=== PATIENT | male | born 1940 | race Caucasian/White ===

== ENCOUNTER 2025-10-16 05:31 | Inpatient (IN) ==
[2025-10-02 14:11] LABS: Basophils # (Auto) 0.02 K/mcL (0.00-0.30); Basophils % (Auto) 0.5 % (0.0-2.0); Eosinophils # (Auto) 0.07 K/mcL (0.00-0.70); Eosinophils % (Auto) 1.8 % (0.0-7.0); Hematocrit 44.6 % (40.1-51.0); Hemoglobin 14.8 g/dL (13.7-17.5); Lymphocytes # (Auto) 1.34 K/mcL (1.50-4.80); Lymphocytes % (Auto) 34.8 % (15.5-49.0); Mean Corpuscular HGB Conc 33.2 g/dL (31.0-36.0); Monocytes # (Auto) 0.36 K/mcL (0.10-0.90); Monocytes % (Auto) 9.4 % (1.0-12.0); Neutrophils % (Auto) 53.5 % (38.0-78.0); Platelet Count 213 K/mcL (140-440); RBC 4.55 M/mcL (4.63-6.08); WBC 3.9 K/mcL (4.5-11.0)
[2025-10-02 14:22] LABS: ALT/SGPT 14 U/L (<40); AST/SGOT 17 U/L (<40); Albumin 4.3 gm/dL (3.2-5.2); Albumin/Globulin Ratio 1.6 (1.0-2.3); Alkaline Phosphatase 95 U/L (39-117); Anion Gap 10.0 (8.0-16.0); Bilirubin,Total 0.2 mg/dL (0.1-1.0); Blood Urea Nitrogen 28 mg/dL (8-23); Calcium 9.7 mg/dL (8.6-10.4); Carbon Dioxide 25 mmol/L (22-30); Chloride 104 mmol/L (96-108); Globulin 2.7 gm/dL (2.2-3.7); Glucose 151 mg/dL (70-105); Potassium 4.7 mmol/L (3.3-5.1); Sodium 139 mmol/L (133-145)
[2025-10-02 14:25] LABS: Estimated Average Glucose(eAG) 174 mg/dL; Hemoglobin A1C 7.7 % Hgb (4.0-6.0)
[2025-10-02 14:37] LABS: INR 0.9 (0.9-1.1); Prothrombin Time 13.1 sec (11.9-14.5)
[2025-10-16 06:19] LABS: Bilirubin,Urine Negative (Negative); Color,Urine LT. YELLOW; Glucose,Urine (UA) >=1000 mg/dL (Negative); Ketones,Urine >=80 mg/dL (Negative); Leukocyte Esterase,Urine NEGATIVE /uL (Negative); Mucus,Urine Mod /hpf; PH,Urine 6.0 (5.0-9.0); Protein,Urine NEGATIVE (Negative); Specific Gravity,Urine 1.025 (1.000-1.035); Urobilinogen,Urine 0.2 mg/dL
[2025-10-16] MEDS ORDERED: SUGAMMADEX SODIUM 200 MG/2 ML VIAL IV ONE (07:10)
[2025-10-16] MEDS ORDERED: PROPOFOL 200 MG/20 ML VIAL IV ONE (07:10)
[2025-10-16] MEDS ORDERED: fentaNYL 100 MCG/2 ML VIAL ONE (07:10)
[2025-10-16] MEDS ORDERED: LIDOCAINE 2% PF 5 ML VIAL ONE (07:12)
[2025-10-16] MEDS ORDERED: ROCURONIUM 10 MG/ML ML IV ONE (07:12)
[2025-10-16] MEDS ORDERED: ONDANSETRON 4 MG/2 ML VIAL ONE (07:12)
[2025-10-16] MEDS ORDERED: DEXAMETHASONE 10 MG/ML VIAL ONE (07:12)
[2025-10-16] MEDS ORDERED: GLYCOPYRROLATE 0.2 MG/ML VIAL IV ONE ×2 (07:12→10:00)
[2025-10-16] MEDS ORDERED: MAGNESIUM SULFATE 2 GM/50 ML BAG IV ONE (07:12)
[2025-10-16] MEDS: ceFAZolin 2 GM in DEXTROSE 5% IN WATER 50 ML IV SCH (07:59)
[2025-10-16] MEDS ORDERED: ePHEDrine 50 MG/5 ML SYRINGE (ANEST) IV ONE (08:30)
[2025-10-16] MEDS ORDERED: PHENYLephrine 1 MG/10 ML SYRINGE (ANEST) ONE ×2 (08:42→10:55)
[2025-10-16] MEDS ORDERED: IPRATROPIUM/ALBUTEROL 3 ML AMPUL.NEB NEB PRN (08:56)
[2025-10-16] MEDS ORDERED: ONDANSETRON 4 MG/2 ML VIAL IV PRN (08:56)
[2025-10-16] MEDS ORDERED: METHOCARBAMOL 1,000 MG/10 ML VIAL IV PRN (08:56)
[2025-10-16] MEDS ORDERED: BENZOCAINE/MENTHOL 1 LOZENGE PO PRN (08:56)
[2025-10-16] MEDS ORDERED: HYDROmorphone 0.5 MG/0.5 ML SYRINGE IV PRN ×2 (08:56→09:45)
[2025-10-16] MEDS ORDERED: fentaNYL 100 MCG/2 ML VIAL IV PRN (08:56)
[2025-10-16] MEDS: GENTAMICIN SULFATE 800 MG/20 ML VIAL IR ONE (09:00)
[2025-10-16] MEDS: VANCOMYCIN 1 GM VIAL TOPICAL SCH (09:00)
[2025-10-16] MEDS ORDERED: HYDROmorphone 0.5 MG/0.5 ML SYRINGE ONE (09:14)
[2025-10-16] MEDS ORDERED: ROPIVACAINE HCL/PF 30 ML VIAL IJ ONE ×2 (09:14→10:27)
[2025-10-16] MEDS: ACETAMINOPHEN 1,000 MG/100 ML BAG IV ONE (09:52)
[2025-10-16] MEDS ORDERED: MIDAZOLAM 2 MG/2 ML VIAL ONE (10:43)
[2025-10-16] MEDS: METOPROLOL TARTRATE 50 MG TABLET PO SCH (21:01)
[2025-10-17] MEDS: LOSARTAN 50 MG TABLET PO SCH (08:01)
[2025-10-17 12:38] VITALS: TEMP 97; O2SAT 95
== END 2025-10-17 14:54 | disposition home or self-care (01) | DRG 354 ==
LOC: MEDSUR 05:31 → EDSTATUS 07:30
PROVIDERS: ADMIT Family Medicine Adult Medicine; ATTEND Family Medicine Adult Medicine